=== PATIENT | male | born 1985 | race African-American/Black ===

== ENCOUNTER 2020-09-04 19:53 | Emergency (ER) | payer OTHER, SELFPAY ==
[2020-09-04 20:50] VITALS: BP 125/84; PULSE 65; RESP 20; TEMP 36.8; O2SAT 98
--- NOTE | 2020-09-04 21:25 | ED.GENADULT ---
HPI - General Adult General Chief complaint: Neck Pain/Injury Stated complaint: Neck pain Time Seen by Provider: 09/04/20 20:51 Source: patient and RN notes reviewed Mode of arrival: ambulatory Limitations: no limitations History of Present Illness HPI narrative: Patient is a 35-year-old male who has a few days duration of right-sided neck pain notes that he woke with aching pain to the right side of the neck described as a aching pain to the right side of the neck with aching pain patient denies similar occurrence in the past injury or trauma woke with this pain is noted has tried lidocaine patches and ibuprofen with minimal improvement on arrival is in no distress denies recent illness or other complaints Related Data Allergies Allergy/AdvReac Type Severity Reaction Status Date / Time cephalexin Allergy Intermediate Itching Verified 09/25/19 11:48 sulfamethoxazole Allergy Intermediate Itching Verified 09/25/19 11:48 trimethoprim Allergy Intermediate Itching Verified 09/25/19 11:48 Review of Systems Review of Systems: All systems reviewed & are unremarkable except as noted in HPI and below PMFSH Family History Family History (System 09/25/19 @ 11:48 by David Zamora) Mother Patient's mother is in good health Father Patient's father is in good health Social History Social History Smoking status: Never smoker Alcohol intake: never Exam Narrative: Exam Narrative: GENERAL: Well-appearing, well-nourished, and in no acute distress. HEAD: Normocephalic, atraumatic. EYES: PERRLA and EOMI. ENT: Nares clear, no rhinorrhea or epistaxis. Mucous membranes moist. NECK: Supple. No adenopathy or masses. CHEST: Clear to auscultation. No respiratory distress. No wheezes rales or rhonchi HEART: Regular rate and rhythm. No murmur heard. EXTREMITIES: Normal range of motion. No edema. Patient with tenderness and spasm to the right paraspinal cervical musculature no other deformities noted SKIN: Warm, dry, no rash. NEURO: No focal deficits. Alert and oriented x3. Neurovascularly intact. Cranial nerves II through XII grossly intact PSYCH: Normal mood and affect. Course Course Emergency Course: Patient with spasmodic torticollis will be managed accordingly felt appropriate for outpatient reevaluation agreeing to follow-up as instructed Vital Signs Vital signs: Vital Signs Temperature 98.3 F 09/04/20 20:50 Pulse Rate 65 09/04/20 20:50 Respiratory Rate 20 09/04/20 20:50 Blood Pressure 125/84 09/04/20 20:50 Pulse Oximetry 98 09/04/20 20:50 Temperature 98.3 F 09/04/20 20:50 Pulse Rate 65 09/04/20 20:50 Respiratory Rate 20 09/04/20 20:50 Blood Pressure 125/84 09/04/20 20:50 Pulse Oximetry 98 09/04/20 20:50 Medical Decision Making MDM Narrative Medical decision making narrative: Patients injury or pain is consistent with musculoskeletal etiology. No signs of neurological or vascular compromise on exam. Compartments and tisues are soft without signs of compartment syndrome. Pain is felt appropriate for further evaluation on an outpatient basis. Vital Signs Vital Signs: Vital Signs Temperature 98.3 F 09/04/20 20:50 Pulse Rate 65 09/04/20 20:50 Respiratory Rate 20 09/04/20 20:50 Blood Pressure 125/84 09/04/20 20:50 Pulse Oximetry 98 09/04/20 20:50 Temperature 98.3 F 09/04/20 20:50 Pulse Rate 65 09/04/20 20:50 Respiratory Rate 20 09/04/20 20:50 Blood Pressure 125/84 09/04/20 20:50 Pulse Oximetry 98 09/04/20 20:50 Discharge Plan Discharge Clinical Impression: Spasmodic torticollis Patient Disposition: Home, Self-Care Condition: Stable Instructions: Antibiotic Form, Spasmodic Torticollis (ED) Additional Instructions: Follow up with your primary care doctor in 5-7 days for re-evaluation. Go to ER for worsening pain, vision changes, nausea/vomiting, fever/chills, weakness, chest pain
== END 2020-09-04 22:20 | disposition home or self-care (01) ==
PROVIDERS: Emergency Provider Emergency Medicine
DX: G24.3 Spasmodic torticollis (principal)
CPT/HCPCS: 99283

== ENCOUNTER 2023-09-22 09:44 | Outpatient (CLI) | payer BC, MEDICAID, SELFPAY ==
--- NOTE | ~2023-09-22 | NM_ITS ---
EXAMINATION: NM stress w perf spect multi DATE: 09/22/2023 12:21 INDICATION: Abnormal EKG TECHNIQUE: Rest images were obtained following intravenous administration of 9.3 mCi Tc99m tetrofosmi n (Shelfari). The patient performed an exercise activity. At peak exercise, 29.1 mCi Tc99m tetrofosmin (Myoview) was administered intravenously, and stress images were obtained in supine position. Additi onal post stress images were obtained in the prone position. Data was reconstructed into short axis a nd horizontal and vertical long axis SPECT images. Gated SPECT images were also obtained. COMPARISON: None. FINDINGS: There is normal left ventricular perfusion on post stress images without definite evidence of reversi ble or fixed perfusion abnormality to suggest ischemia or infarction. There is normal left ventricul ar chamber size, wall motion and ejection fraction. Left ventricular ejection fraction measures 64%. IMPRESSION: 1. Normal myocardial perfusion during stress. 2. Left ventricular ejection fraction measuring 64%. Reviewed, dictated and finalized at location A.
--- NOTE | 2023-09-22 10:12 | EST_ITS ---
Patient Info Name: Levon Tai Age: 38 years : 1985 Gender: Male Ht: 72 in Wt: 232 lbs BSA: 2.34 m2 HR: 52 bpm BP: 122 / 85 mmHg Heart Rhythm: Sinus Rhythm Exam Date: 09/22/2023 10:58 AM Exam Location: Echo Lab Patient Status: Outpatient Admit Date: 09/22/2023 Staff Ordering Physician: Cassandra Ratliff PA-C Attending Provider: Caitlin Gonzalez MD Exercise Technologist: Margot Saeed CT Exercise Physician: Edison oCle DO Exam Type: CA stress test treadmill w NM Study Info Indications R94.31 - Abnormal electrocardiogram ECG EKG A nuclear stress test was performed. Summary 1. 1. Negative Alejandro exercise stress test for ischemic ST changes by ECG criteria. 2. 2. Good functional capacity, achieving 11 METs of workload. 3. 3. Appropriate HR response to exercise. 4. 4. Appropriate HR recovery at 1 minute post exercise. 5. 5. Nuclear scan to follow and will be reported separately. Please correlate with it. 6. 6. Patient informed of the above results. Protocol: Alejandro Stress ECG Details Stage: REST Duration (min): 1 min : 35 sec Speed (mph): 0.0 Grade (%): 0 HR (bpm): 52 SBP (mmHg): 122 DBP (mmHg): 85 METS: --- Stage: REST Duration (min): 8 min : 16 sec Speed (mph): 0.0 Grade (%): 0 HR (bpm): 56 SBP (mmHg): 122 DBP (mmHg): 85 METS: --- Stage: STAGE 1 Duration (min): 1 min : 0 sec Speed (mph): 1.7 Grade (%): 10 HR (bpm): 74 SBP (mmHg): 122 DBP (mmHg): 85 METS: --- Stage: STAGE 1 Duration (min): 2 min : 0 sec Speed (mph): 1.7 Grade (%): 10 HR (bpm): 86 SBP (mmHg): 122 DBP (mmHg): 85 METS: --- Stage: STAGE 1 Duration (min): 3 min : 0 sec Speed (mph): 1.7 Grade (%): 10 HR (bpm): 94 SBP (mmHg): 144 DBP (mmHg): 56 METS: --- Stage: STAGE 2 Duration (min): 1 min : 0 sec Speed (mph): 2.5 Grade (%): 12 HR (bpm): 105 SBP (mmHg): 144 DBP (mmHg): 56 METS: --- Stage: STAGE 2 Duration (min): 2 min : 0 sec Speed (mph): 2.5 Grade (%): 12 HR (bpm): 116 SBP (mmHg): 146 DBP (mmHg): 56 METS: --- Stage: STAGE 2 Duration (min): 3 min : 0 sec Speed (mph): 2.5 Grade (%): 12 HR (bpm): 118 SBP (mmHg): 146 DBP (mmHg): 56 METS: --- Stage: STAGE 3 Duration (min): 1 min : 0 sec Speed (mph): 3.4 Grade (%): 14 HR (bpm): 135 SBP (mmHg): 185 DBP (mmHg): 68 METS: --- Stage: STAGE 3 Duration (min): 2 min : 0 sec Speed (mph): 3.4 Grade (%): 14 HR (bpm): 147 SBP (mmHg): 185 DBP (mmHg): 68 METS: --- Stage: STAGE 3 Duration (min): 3 min : 0 sec Speed (mph): 3.4 Grade (%): 14 HR (bpm): 153 SBP (mmHg): 183 DBP (mmHg): 64 METS: --- Stage: STAGE 4 Duration (min): 0 min : 43 sec Speed (mph): 4.2 Grade (%): 16 HR (bpm): 161 SBP (mmHg): 183 DBP (mmHg): 64 METS: --- Stage: RECOVERY Duration (min): 0 min : 16 sec Speed (mph): 1.5 Grade (%):
== END 2023-09-22 09:45 | disposition home or self-care (01) ==
LOC: ANHCARD 09:45
PROVIDERS: PCP Family Medicine; Visit Provider Family Medicine
DX: R94.31 Abnormal electrocardiogram [ECG] [EKG] (principal); R07.9 Chest pain, unspecified
CPT/HCPCS: 78452; 93017; A9502

== ENCOUNTER 2023-10-24 19:42 | Emergency (ER) | payer BC, SELFPAY ==
--- NOTE | 2023-10-24 19:45 | ED.URI ---
HPI - URI/Sore Throat General Chief Complaint: Upper Respiratory Infection Stated Complaint: Runny Nose,Exposure to COVID Time Seen by Provider: 10/24/23 19:45 Source: patient, RN notes reviewed and old records reviewed Mode of arrival: ambulatory Limitations: no limitations History of Present Illness HPI Narrative: 38-year-old male presents to the [facility] with concerns for runny nose and had exposure to COVID on Tuesday, 3 days ago. Patient denies any other symptoms Treatments prior to arrival: none Related Data Home Medications Medication Instructions Recorded Confirmed No Home Medications 10/24/23 10/24/23 Allergies Allergy/AdvReac Type Severity Reaction Status Date / Time cephalexin AdvReac Mild Itching Verified 10/24/23 19:45 sulfamethoxazole AdvReac Mild Itching Verified 10/24/23 19:45 trimethoprim AdvReac Mild Itching Verified 10/24/23 19:45 Review of Systems Review of Systems: All systems reviewed & are unremarkable except as noted in HPI and below Constitutional: Constitutional: Reports no additional constitutional complaints Eyes: Eyes: Reports no additional eye complaints ENT: Reports as per HPI Cardiovascular: Cardiovascular: Reports no additional cardiovascular complaints, Denies chest pain and Denies dyspnea Respiratory: Respiratory: Reports no additional respiratory complaints, Denies chest congestion, Denies cough and Denies dyspnea Gastrointestinal: Gastrointestinal: Reports no additional gastrointestinal complaints, Denies abdominal pain, Denies nausea and Denies vomiting Musculoskeletal: Musculoskeletal: Reports no additional musculoskeletal complaints Integumentary/Breasts: Skin/Breast: Reports system reviewed and no additional complaints, except as docu Neurologic: Reports system reviewed and no additional complaints, except as documented Psychiatric: Psychiatric: Reports no additional psychiatric complaints Allergic/Immunologic: Allergic/Immunologic: Reports no additional allergic/immunologic complaints [facility] Family History Family History Mother Patient's mother is in good health Father Malignant neoplasm of prostate Social History Social History Social History: Single Smoking status: Never smoker Second hand tobacco smoke exposure: No Alcohol intake: never Substance use: never Substance use type: does not use Living arrangements: alone Occupation/Education: occupation Gender identity (if verbalized by the patient): Male Sexual Orientation (if Verbalized by the Patient): Straight or Heterosexual Comments At the time of my signature, I reviewed and agree with the nursing past medical, surgical, social, and family history. There is no relevant family history pertinent to the patient complaint. Exam Const: General: cooperative, healthy appearing, comfortable, no acute distress, well developed, alert and well nourished Nutritional Appearance: well nourished Orientation/consciousness: patient oriented x3 Limitations: no limitations HENMT: Head: normal to inspection Ears: hearing grossly normal bilaterally and external ears normal Face/Nose/Sinus: Normal external nose present, Normal nares present, Normal nasal mucous membranes and turbinates present, No nasal discharge present, normal facial exam and face symmetric Face and sinus: normal facial exam and face symmetric Mouth: Yes Normal oral and palatal mucosa present, Yes lip normal, Yes tongue normal, Yes oropharynx normal and Yes moist mucous membranes Throat: posterior oropharynx normal, uvula midline and no uvular edema Eyes: General: appearance normal, both eyes and all related structures Alignment and Position: alignment normal Periorbital: periorbital findings normal Pupils: Equal, round and reactive pupils present EOM: EOMs intact bilaterally Neck: Neck: normal visual inspection, full R
[2023-10-24 19:55] VITALS: BP 131/89; PULSE 62; RESP 18; TEMP 36.4; O2SAT 98
== END 2023-10-24 20:24 | disposition home or self-care (01) ==
PROVIDERS: Emergency Provider Nurse Practitioner; PCP Family Medicine
DX: R09.89 Other specified symptoms and signs involving the circulatory and respiratory systems (principal); Z20.822 Contact with and (suspected) exposure to COVID-19
CPT/HCPCS: 87426; 99213; G0463

== ENCOUNTER 2023-12-18 14:14 | Emergency (ER) | payer BC, SELFPAY ==
[2023-12-18 14:40] VITALS: BP 117/72; PULSE 75; RESP 18; TEMP 36.6; O2SAT 100
[2023-12-18 14:46] VITALS: BP 117/72; PULSE 75; RESP 18; TEMP 36.6; O2SAT 100
[2023-12-18 15:06] LABS: EDINFLUASCREEN Negative (Negative); EDINFLUBSCREEN Negative (Negative)
[2023-12-18 15:06] LABS: EDCOVIDSCREEN Negative (Negative)
--- NOTE | 2023-12-18 15:11 | ED.URI ---
HPI - URI/Sore Throat General Chief Complaint: Upper Respiratory Infection Stated Complaint: COVID Symthoms Time Seen by Provider: 12/18/23 14:31 Source: patient Mode of arrival: ambulatory Limitations: no limitations History of Present Illness HPI Narrative: 38-year-old male presents to [facility] with complaints of runny nose, dry cough, nasal congestion and low-grade fevers up to 100 for the past 4 days. Patient is requesting COVID test today. 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 Patient has been taking [id number] cold medications with minimal relief. Patient is a nonsmoker. Patient denies recent travel MD elicited complaint: cough, rhinorrhea and nasal congestion Onset (ago): day(s) (4) Description of mucous: clear Able to tolerate fluids by mouth: Yes Exacerbating factors: nothing Treatments prior to arrival: cold medicine Related Data Home Medications Medication Instructions Recorded Confirmed No Home Medications 10/24/23 10/24/23 Allergies Allergy/AdvReac Type Severity Reaction Status Date / Time cephalexin AdvReac Mild Itching Verified 12/18/23 14:45 sulfamethoxazole AdvReac Mild Itching Verified 12/18/23 14:45 trimethoprim AdvReac Mild Itching Verified 12/18/23 14:45 Review of Systems Constitutional: Constitutional: Reports chills, Denies fatigue, Reports fever(s) and Denies weakness ENT: Denies dizziness, Denies epistaxis, Reports nasal congestion and Denies sore throat Respiratory: Respiratory: Reports cough, Denies dyspnea and Denies wheezing Gastrointestinal: Gastrointestinal: Denies diarrhea, Denies nausea and Denies vomiting Genitourinary: Genitourinary: Denies dysuria Integumentary/Breasts: Skin/Breast: Denies rash Neurologic: Denies syncope and Denies headache(s) [facility] Family History Family History Mother Patient's mother is in good health Father Malignant neoplasm of prostate Social History Social History Social History: Single Smoking status: Never smoker Second hand tobacco smoke exposure: No Alcohol intake: never Substance use: never Substance use type: does not use Living arrangements: alone Occupation/Education: occupation Gender identity (if verbalized by the patient): Male Sexual Orientation (if Verbalized by the Patient): Straight or Heterosexual Comments At time of signature, I agree with nursing past medical, surgical, social and family history. There is no relevant family history pertinent to the presenting complaint. Exam Const: General: healthy appearing and no acute distress Nutritional Appearance: well nourished Orientation/consciousness: patient oriented x3 Limitations: no limitations HENMT: Head: normal to inspection Ears: external ears normal, TM's normal bilaterally and EAC's normal Face and sinus: normal facial exam Mouth: Yes Normal oral and palatal mucosa present and Yes moist mucous membranes Teeth and gingiva: dentition normal Throat: posterior oropharynx normal and uvula midline Eyes: Conjunctivae: conjunctivae normal Neck: Neck: normal visual inspection Resp: Effort & Inspection: normal respiratory effort and not labored Auscultation: clear to auscultation bilaterally, no crackles, no rales, no rhonchi and no wheezes Cardio: Rate: regular rate Rhythm: regular rhythm Heart sounds: no murmurs Skin: General skin exam: normal color Rashes: no rashes Neuro: Speech: normal speech Gait exam (Neuro): Normal gait present Psych: Affect: normal affect Attitude: cooperative Course Course Level of Care: Express Care Visit Vital Signs Vital signs: Vital Signs Temperature 36.6 C 12/18/23 14:40 Pulse Rate 75 12/18/23 14:40 Respiratory Rate 18 12/18/23 14:40 Blood Pressure 117/72 12/18/23 14:40 Pulse
== END 2023-12-18 15:19 | disposition home or self-care (01) ==
PROVIDERS: Emergency Provider Nurse Practitioner Family
DX: B34.9 Viral infection, unspecified (principal); Z20.822 Contact with and (suspected) exposure to COVID-19; E78.00 Pure hypercholesterolemia, unspecified; Z86.16 Personal history of COVID-19
CPT/HCPCS: 87635; 87804; 99213; G0463